=== PATIENT | male | born 1940 | race Caucasian/White ===

== ENCOUNTER 2016-11-20 20:33 | Emergency (ER) | payer OTHER ==
[~2016-11-20] VITALS: Ht 175.3 cm; Wt 74.1 kg
[2016-11-20] MEDS ORDERED: TYLENOL WITH C1 EACH PO (22:12)
[2016-11-20 22:37] VITALS: BP 162/81
== END 2016-11-20 22:41 | disposition home or self-care (01) ==
LOC: EME 20:33
DX: S80.12XA Contusion of left lower leg, initial encounter (principal); W11.XXXA Fall on and from ladder, initial encounter; Y93.89 Activity, other specified; I10 Essential (primary) hypertension; Z87.891 Personal history of nicotine dependence
CPT/HCPCS: 73590; 99281; 99283